=== PATIENT | male | born 1950 | race Caucasian/White ===

== ENCOUNTER → 2019-11-10 07:36 | Outpatient (BNVA) | payer MEDICARE, SELFPAY | PROVIDERS: Family Provider Internal Medicine; Visit Provider Nurse Practitioner Family | DX: R09.89 Other specified symptoms and signs involving the circulatory and respiratory systems (principal); R06.02 Shortness of breath; R05 Cough | CPT/HCPCS: 71046; 85025 ==

== ENCOUNTER → 2019-11-26 08:46 | Outpatient (BNVA) | payer MEDICARE, SELFPAY | PROVIDERS: Family Provider Internal Medicine; Visit Provider Nurse Practitioner Family | DX: J40 Bronchitis, not specified as acute or chronic (principal); J45.41 Moderate persistent asthma with (acute) exacerbation; M19.90 Unspecified osteoarthritis, unspecified site; I10 Essential (primary) hypertension | CPT/HCPCS: 80053; 85025 ==

== ENCOUNTER → 2020-01-12 09:17 | Outpatient (BNVA) | payer MEDICARE, SELFPAY | PROVIDERS: Family Provider Internal Medicine; Visit Provider Nurse Practitioner Family | DX: J45.909 Unspecified asthma, uncomplicated (principal); R05 Cough; J40 Bronchitis, not specified as acute or chronic; Z13.6 Encounter for screening for cardiovascular disorders; R60.9 Edema, unspecified | CPT/HCPCS: 71046; 80053; 83880; 85025 ==

== ENCOUNTER → 2020-03-22 08:18 | Outpatient (BNVA) | payer MEDICARE, SELFPAY | PROVIDERS: Family Provider Internal Medicine; Visit Provider Family Medicine | DX: R06.2 Wheezing (principal); J43.9 Emphysema, unspecified | CPT/HCPCS: 71046 ==

== ENCOUNTER → 2020-05-12 10:00 | Outpatient (BNVA) | payer MEDICARE, SELFPAY | PROVIDERS: Family Provider Internal Medicine; Visit Provider Nurse Practitioner Family | DX: I10 Essential (primary) hypertension (principal); E11.9 Type 2 diabetes mellitus without complications | CPT/HCPCS: 80053; 80061; 83036; 85025 ==

== ENCOUNTER 2020-10-14 17:41 | Emergency (ER) | payer MEDICARE, SELFPAY ==
[2020-10-14] VITALS (7 sets, daily range): BP systolic 132–153; BP diastolic 72–83; PULSE 76–83; RESP 18–19; O2SAT 94–96; BMI 30.4
--- NOTE | 2020-10-14 17:55 | ECG_ITS ---
[facility] Test Date: 2020-10-14 Pat Name: Aubrey El Department: Room: Gender: Male Licensed Embalmer: : 1950 Requested By: Ken Mcarthur Order Number: [id number] Gay MD: Itzel Bates M.D. Measurements Intervals [place] Rate: 74 P: 59 PA: 185 QRS: -52 QRSD: 100 T: 47 QT: 352 QTc: 392 Interpretive Statements SINUS RHYTHM LEFT AXIS DEVIATION [QRS AXIS < -30] No previous ECG available for comparison Electronically Signed On 10-15-2020 22:15:50 NETWORK ARCHITECT by Itzel Bates M.D. [email or web address]
--- NOTE | 2020-10-14 17:55 | XR_ITS ---
WS: [id number] Exam: XR chest 1V portable [id number] Date/Time of Exam: 10/14/2020 5:55 PM Reason For Exam: cp Comparison 03/22/2020. Findings: The lungs are clear and fully expanded. Costophrenic angles are sharp. No infiltrates. Bronchovascula r relief appears normal. Cardiac silhouette is unremarkable. Bony elements are intact. XR/XR chest 1V portable [id number] IMPRESSION: Unremarkable chest radiograph.
[2020-10-14 18:01] LABS: Basophils # 0.1 10^3/uL (0.0-0.1); Basophils % 0.8 %; Eosinophils # 1.3 10^3/uL (0.0-0.8); Eosinophils % 11.2 %; Hematocrit 43.4 % (42.0-52.0); Hemoglobin 14.2 g/dL (11.7-16.6); Lymphocytes # 1.9 10^3/uL (0.8-4.8); Lymphocytes % 16.7 %; Mean Corpuscular HGB Conc 32.7 g/dL (30.0-36.0); Mean Corpuscular Hemoglobin 27.4 pg (28.0-34.0); Mean Corpuscular Volume 83.6 fL (80-94); Mean Platelet Volume 9.2 fL (7.4-10.4); Monocytes # 0.9 10^3/uL (0.2-0.9); Monocytes % 7.8 %; Neutrophils # 7.22 10^3/uL (1.8-7.7); Neutrophils % 63.2 %; Nucleated Red Blood Cells % 0 %; Platelet Count 319 10^3/cmm (130-400); Red Blood Count 5.19 10^6/uL (4.1-5.3); Red Cell Distribution Width 13.8 % (12.1-15.1); White Blood Count 11.4 10^3/uL (4.0-10.0)
--- NOTE | 2020-10-14 18:11 | ED_ITS ---
HPI - Chest Pain General: Chief Complaint: Chest Pain Stated Complaint: CHEST PAIN Time Seen by Provider: 10/14/20 17:55 Source: patient Mode of arrival: ambulatory Limitations: no limitations History of Present Illness: HPI narrative: 69-year-old male states has been having left-sided chest pain over the last 3 days. He states been a sharp pain and seems to be worse with palpation and movement of his left arm. States pain is currently 2 out of 10. He denies any radiation of his pain. He denies any nausea. He denies any shortness of breath. Denies any fever. He denies any cough. MD complaint: chest pain Associated symptoms: Deny abdominal pain, dyspnea, fever(s), nausea or vomiting Review of Systems Const: Denies: fever(s), chills, body aches or change in appetite Eyes: Denies: blurry vision or eye discomfort ENMT: Denies: throat pain or dental pain Card: Reports: chest pain Resp: Denies: dyspnea GI: Denies: abdominal pain, nausea, vomiting or diarrhea : Denies: dysuria Musc: Denies: neck pain or back pain Skin/Breast: Denies: rash Neuro: Denies: headache(s) Psych: Denies: depression Sohail/Lymph: Denies: easy bruising All/Imm: Denies: urticaria PFSH ED PFSH: Medical History (Updated 10/14/20 @ 20:27 by Ken Mcarthur MD) Asthma exacerbation Bronchitis Diabetes Hyperlipidemia Recurrent sinusitis Social History Smoking and tobacco status: never smoked Second hand smoke exposure: No Alcohol intake: never Caregiver/support person: Yes Lives independently: Yes Household members: none Marital status: / Current occupational status: retired History of recent travel: No Current gender identity: Male Physical Exam Const: COMMON NORMALS: no acute distress, patient oriented x3 and healthy appearing HENMT: COMMON NORMALS: normocephalic and atraumatic HEAD & SCALP: normocephalic and atraumatic Eye: COMMON NORMALS: Equal, round and reactive pupils present and EOMs intact bilaterally PUPIL: Yes Equal, round and reactive pupils present Neck/C-Spine: COMMON NORMALS: full ROM and supple Chest: COMMONS NORMALS: normal palpation of entire chest wall OTHER: point tender to left chest reproduces pain Resp: COMMON NORMALS: normal respiratory effort, No retractions, No use of accessory muscles and clear to auscultation bilaterally AUSCULTATION: clear to auscultation bilaterally Cardio: COMMON NORMALS: regular rate, regular rhythm and No murmurs present (Cardio) RATE: regular rate RHYTHM: regular rhythm GI: COMMON NORMALS: Normal to inspection, nondistended, normoactive bowel sounds present, Soft to palpation, non-tender and no masses PALPATION: Yes Soft to palpation Extremity: COMMON NORMALS: normal to inspection and full ROM Neuro: COMMON NORMALS: patient oriented x3, moves all extremities and no focal motor deficits Psych: COMMON NORMALS: mental status grossly normal, Normal thought process present and cooperative THOUGHT PROCESS: Normal thought process present Skin: COMMON NORMALS: no rashes or lesions noted and no wounds GENERAL SKIN EXAM: no rashes or lesions noted Course Vital Signs: Vital signs: Vital Signs Pulse Rate 76 10/14/20 17:49 Respiratory Rate 18 10/14/20 17:49 Blood Pressure 149/78 10/14/20 17:49 Pulse Oximetry 94 10/14/20 17:49 MDM - Chest Pain MDM Narrative: Medical decision making narrative: Patient presents with chest pain is atypical in nature. He is point tender on exam but is pain is likely muscular in nature. His initial repeat troponins here are negative. His x-ray here is negative as well. He has no signs of aortic dissection or pulmonary Adrian. He has no signs of acute coronary syndrome. Patient is stable for discharge and he is to follow-up with his PCP next week and he is to follow-up then and return to ER if worsening. He understands agrees to plan. Lab Data: Labs: Lab Results 10/14/20 10/14/20 10/14/20 Range/Units 17:34 17:45 17:45 WBC 11.4 H (4.0-10.0) 10^3/ uL RBC 5.19 (4.1-5.3) 10^6/u L Hgb 14.2 (11.7-16.6) g/dL Hct 43.4 (42.0-52.0) % MCV 83.6 (80-94) fL MCH 27.4 L (28.0-34.0) pg MCHC 32.7 (30.0-36.0) g/dL RDW 13.8 (12.1-15.1) % Plt Count 319 (130-400) 10^3/c mm MPV 9.2 (7.4-10.4) fL Neut % (Auto) 63.2 % Lymph % (Auto) 16.7 % Andrews % (Auto) 7.8 % Eos % (Auto) 11.2 % Baso % (Auto) 0.8 % Neut # (Auto) 7.22 (1.8-7.7) 10^3/u L Lymph # (Auto) 1.9 (0.8-4.8) 10^3/u L Andrews # (Auto) 0.9 (0.2-0.9) 10^3/u L Eos # (Auto) 1.3 H (0.0-0.8) 10^3/u L Baso # (Auto) 0.1 (0.0-0.1) 10^3/u L Nucleated RBC % (a uto) 0 % Nucleated RBCs # 0.0 /100WBC Sodium 140 (136-145) mmol/L Potassium 4.1 (3.5-5.1) mmol/L Chloride 102 (98-107) mmol/L Carbon Dioxide 26 (22-29) mmol/L Anion Gap 16.1 (5-19) BUN 12 (8-23) mg/dL Creatinine 1.2 (0.7-1.2) mg/dL GFR Calculation 60.2 L (90-130) mL/min Glucose 123 H (65-115) mg/dL Calculated Osmolal ity 291 (285-295) mOsm/k g Calcium 9.2 (8.5-10.5) mg/dL Total Bilirubin 0.4 (0.15-1.2) mg/dL AST 36 (0-40) U/L ALT 44 H (0-41) U/L Alkaline Phosphata se 78 (40-130) IU/L Troponin T Baselin e (0-15) ng/L Troponin T 120 Min nikolai 13.15 (0-15) ng/L Total Protein 7.2 (6.6-8.7) g/dL Albumin 4.3 (3.5-5.2) g/dL Globulin 2.9 (1.3-4.6) g/dL 10/14/20 Range/Units 17:45 WBC (4.0-10.0) 10^3/ uL RBC (4.1-5.3) 10^6/u L Hgb (11.7-16.6) g/dL Hct (42.0-52.0) % MCV (80-94) fL MCH (28.0-34.0) pg MCHC (30.0-36.0) g/dL RDW (12.1-15.1) % Plt Count (130-400) 10^3/c mm MPV (7.4-10.4) fL Neut % (Auto) % Lymph % (Auto) % Andrews % (Auto) % Eos % (Auto) % Baso % (Auto) % Neut # (Auto) (1.8-7.7) 10^3/u L Lymph # (Auto) (0.8-4.8) 10^3/u L Andrews # (Auto) (0.2-0.9) 10^3/u L Eos # (Auto) (0.0-0.8) 10^3/u L Baso # (Auto) (0.0-0.1) 10^3/u L Nucleated RBC % (a uto) % Nucleated RBCs # /100WBC Sodium (136-145) mmol/L Potassium (3.5-5.1) mmol/L Chloride (98-107) mmol/L Carbon Dioxide (22-29) mmol/L Anion Gap (5-19) BUN (8-23) mg/dL Creatinine (0.7-1.2) mg/dL GFR Calculation (90-130) mL/min Glucose (65-115) mg/dL Calculated Osmolal ity (285-295) mOsm/k g Calcium (8.5-10.5) mg/dL Total Bilirubin (0.15-1.2) mg/dL AST (0-40) U/L ALT (0-41) U/L Alkaline Phosphata se (40-130) IU/L Troponin T Baselin e 16 H (0-15) ng/L Troponin T 120 Min nikolai (0-15) ng/L Total Protein (6.6-8.7) g/dL Albumin (3.5-5.2) g/dL Globulin (1.3-4.6) g/dL Imaging Data^: CXR: Attestation: I personally reviewed and interpreted this imaging study as follows: My impression: no acute abnormality EKG Data^: EKG 1: Attestation: I personally reviewed and interpreted this EKG as follows: EKG interpretation date: 10/14/20 EKG interpretation time: 17:51 Interpretation: nsr hr [address] or t wave abnormalities qrs 100 qtc 379 Discharge Plan Discharge Patient Disposition: Home Clinical Impression: Chest pain Qualifiers: Chest pain type: unspecified Qualified Code(s): R07.9 - Chest pain, unspecified Condition: Stable Prescriptions: New Naprosyn 500 mg tablet 500 mg PO BID PRN (Reason: pain) Qty: 20 RF: 0 No Action (DME) nebulizers Misc See Rx Instructions .ROUTE .MEDSUPPLY Qty: 1 RF: 0 (DME) nebulizer accessories Misc See Rx Instructions .ROUTE .MEDSUPPLY Qty: 1 RF: 0 budesonide 0.5 mg/2 mL suspension for nebulization See Rx Instructions .ROUTE .COMPLEX RF: 0 Advair Diskus 250-50 mcg/dose blister with device 1 inh INHALATION BID@0800,2100 RF: 0 Zyrtec 10 mg tablet 10 mg PO DAILY@0800 RF: 0 atorvastatin 10 mg tablet 10 mg PO BEDTIME@2100 RF: 0 benazepril-hydrochlorothiazide 20-25 mg tablet 1 tab PO DAILY@0800 RF: 0 montelukast 10 mg tablet 10 mg PO DAILY@0800 RF: 0 Flonase Allergy Relief 50 mcg/actuation spray,suspension 2 spray INTRANASAL DAILY@2100 RF: 0 metformin 500 mg tablet,ER osvaldo.retention 24 hr 500 mg PO DAILY@0800 RF: 0 Discharge Orders: Discharge ED (Routine); Ordered 10/14/20 Ordered By: Ken Mcarthur Referrals: Juan Lopez DO [Primary Care Provider] - 1-3 days Discharge Diet: Advance as tolerated Discharge Activity: Resume usual activity Patient Instructions: Chest Pain (ED) Coding Level of Care Code ED Web Development Instructor for Chg Fwd Exam Comprehensive
[2020-10-14 18:33] LABS: Alanine Aminotransferase 44 U/L (0-41); Albumin Level 4.3 g/dL (3.5-5.2); Alkaline Phosphatase 78 IU/L (40-130); Anion Gap 16.1 (5-19); Aspartate Amino Transferase 36 U/L (0-40); Blood Urea Nitrogen 12 mg/dL (8-23); Calcium 9.2 mg/dL (8.5-10.5); Carbon Dioxide 26 mmol/L (22-29); Chloride 102 mmol/L (98-107); Globulin 2.9 g/dL (1.3-4.6); Glomerular Filtration Rate 60.2 mL/min (90-130); Glucose 123 mg/dL (65-115); Osmolality Calculated 291 mOsm/kg (285-295); Potassium 4.1 mmol/L (3.5-5.1); Sodium 140 mmol/L (136-145); Total Bilirubin 0.4 mg/dL (0.15-1.2); Total Protein 7.2 g/dL (6.6-8.7)
[2020-10-14 18:58] LABS: Troponin(5th) Baseline 16 ng/L (0-15)
[2020-10-14 20:17] LABS: Troponin 5 2HR 13.15 ng/L (0-15)
[2020-10-14 20:29] LABS: Troponin 5 2HR Delta -3.15 ABS# (0-10)
[2020-10-14] MEDS: morphine 4 mg/mL SDV 1 mL IVP (20:39)
== END 2020-10-14 20:58 | disposition home or self-care (01) ==
PROVIDERS: Emergency Provider Emergency Medicine; PCP Internal Medicine
DX: R07.9 Chest pain, unspecified (principal); E11.9 Type 2 diabetes mellitus without complications; E78.5 Hyperlipidemia, unspecified
CPT/HCPCS: 12345; 36415; 71045; 80053; 84484; 85025; 93005; 96374; 99282; 99283; J2270

== ENCOUNTER → 2020-10-18 09:19 | Outpatient (BNVA) | payer MEDICARE, SELFPAY | PROVIDERS: PCP Internal Medicine; Visit Provider Family Medicine | DX: E78.2 Mixed hyperlipidemia (principal); E11.9 Type 2 diabetes mellitus without complications; I10 Essential (primary) hypertension; R07.9 Chest pain, unspecified | CPT/HCPCS: 80053; 80061; 83036; 84443; 85025 ==

== ENCOUNTER → 2021-01-17 12:04 | Outpatient (BNVA) | payer MEDICARE, SELFPAY | PROVIDERS: PCP Internal Medicine; Visit Provider Family Medicine | DX: E11.9 Type 2 diabetes mellitus without complications (principal); E78.2 Mixed hyperlipidemia; I10 Essential (primary) hypertension | CPT/HCPCS: 80053; 80061; 83036; 85025 ==

== ENCOUNTER → 2021-04-25 08:24 | Outpatient (BNVA) | payer MEDICARE, SELFPAY | PROVIDERS: PCP Internal Medicine; Visit Provider Family Medicine | DX: E78.2 Mixed hyperlipidemia (principal); E11.9 Type 2 diabetes mellitus without complications; I10 Essential (primary) hypertension; L98.9 Disorder of the skin and subcutaneous tissue, unspecified; M19.90 Unspecified osteoarthritis, unspecified site | CPT/HCPCS: 80053; 80061; 83036; 84443; 85025 ==

== ENCOUNTER → 2021-06-20 09:00 | Outpatient (BNVA) | payer MEDICARE, SELFPAY | PROVIDERS: Absent Provider Family Medicine; PCP Internal Medicine; Visit Provider Family Medicine | DX: I10 Essential (primary) hypertension (principal); E11.9 Type 2 diabetes mellitus without complications | CPT/HCPCS: 80053; 83036; 85025 ==

== ENCOUNTER → 2021-08-24 09:22 | Outpatient (BNVA) | payer MEDICARE, SELFPAY | PROVIDERS: PCP Internal Medicine; Visit Provider Nurse Practitioner Family | DX: R30.0 Dysuria (principal) | CPT/HCPCS: 81000 ==

== ENCOUNTER → 2021-09-19 10:15 | Outpatient (BNVA) | payer MEDICARE, SELFPAY | PROVIDERS: PCP Internal Medicine; Visit Provider Family Medicine | DX: E78.2 Mixed hyperlipidemia (principal); E11.9 Type 2 diabetes mellitus without complications; I10 Essential (primary) hypertension; Z12.5 Encounter for screening for malignant neoplasm of prostate | CPT/HCPCS: 80053; 80061; 83036; 85025; G0103 ==

== ENCOUNTER → 2021-10-25 14:41 | Outpatient (BNVA) | payer MEDICARE, SELFPAY | PROVIDERS: PCP Internal Medicine; Referring Provider Family Medicine; Visit Provider Urology | DX: R97.20 Elevated prostate specific antigen [PSA] (principal) | CPT/HCPCS: 81003; 84153 ==

== ENCOUNTER → 2021-12-20 08:33 | Outpatient (BNVA) | payer MEDICARE, SELFPAY | PROVIDERS: PCP Family Medicine; Visit Provider Family Medicine | DX: E78.5 Hyperlipidemia, unspecified (principal); E11.9 Type 2 diabetes mellitus without complications; I10 Essential (primary) hypertension | CPT/HCPCS: 80053; 80061; 83036; 85025 ==

== ENCOUNTER → 2022-06-23 11:36 | Outpatient (BNVA) | payer MEDICARE, SELFPAY | PROVIDERS: PCP Family Medicine; Visit Provider Family Medicine | DX: E11.9 Type 2 diabetes mellitus without complications (principal); I10 Essential (primary) hypertension; M19.90 Unspecified osteoarthritis, unspecified site; E78.5 Hyperlipidemia, unspecified; Z23 Encounter for immunization; E78.2 Mixed hyperlipidemia | CPT/HCPCS: 80053; 80061; 82043; 83036; 84443; 85025 ==

== ENCOUNTER → 2022-11-08 08:27 | Outpatient (BNVA) | payer MEDICARE, SELFPAY | PROVIDERS: PCP Family Medicine; Visit Provider Family Medicine | DX: I10 Essential (primary) hypertension (principal); E11.9 Type 2 diabetes mellitus without complications; E78.5 Hyperlipidemia, unspecified | CPT/HCPCS: 80053; 80061; 83036; 84443; 85025 ==

== ENCOUNTER → 2022-11-15 11:17 | Outpatient (BNVA) | payer MEDICARE, SELFPAY | PROVIDERS: PCP Family Medicine; Visit Provider Family Medicine | DX: Z00.00 Encounter for general adult medical examination without abnormal findings (principal); Z12.5 Encounter for screening for malignant neoplasm of prostate | CPT/HCPCS: G0103 ==

== ENCOUNTER → 2023-05-28 11:20 | Outpatient (BNVA) | payer MEDICARE, SELFPAY | PROVIDERS: PCP Family Medicine; Visit Provider Family Medicine | DX: E11.9 Type 2 diabetes mellitus without complications (principal); E78.5 Hyperlipidemia, unspecified; I10 Essential (primary) hypertension; R97.20 Elevated prostate specific antigen [PSA] | CPT/HCPCS: 80053; 80061; 83036; 84153; 84443; 85025 ==

== ENCOUNTER → 2023-11-26 09:24 | Outpatient (BNVA) | payer MEDICARE, SELFPAY | PROVIDERS: PCP Family Medicine; Visit Provider Family Medicine | DX: R05.9 Cough, unspecified (principal); J18.9 Pneumonia, unspecified organism | CPT/HCPCS: 71046 ==

== ENCOUNTER → 2024-01-15 10:09 | Outpatient (BNVA) | payer MEDICARE, SELFPAY | PROVIDERS: PCP Family Medicine; Visit Provider Family Medicine | DX: E11.9 Type 2 diabetes mellitus without complications (principal); I10 Essential (primary) hypertension; R30.0 Dysuria; Z79.899 Other long term (current) drug therapy | CPT/HCPCS: 80053; 80061; 81000; 82043; 83036; 85025 ==

== ENCOUNTER → 2024-05-27 10:21 | Outpatient (BNVA) | payer MEDICARE, SELFPAY | PROVIDERS: PCP Family Medicine; Visit Provider Nurse Practitioner Family | DX: E11.9 Type 2 diabetes mellitus without complications (principal); R97.20 Elevated prostate specific antigen [PSA] | CPT/HCPCS: 80053; 80061; 82607; 83036; 84153; 84443; 85025 ==

== ENCOUNTER 2024-06-27 14:50 | Outpatient (CLI) | payer MEDICARE, SELFPAY ==
--- NOTE | 2024-06-27 15:00 | USCV_ITS ---
Aubrey El Age: 73 Gender: M : 1950 Exam Date: 06/27/2024 15:24 Ordering Phys: Sherine Kowalski FINANCE CONSULTANT FINANCE CONSULTANT Technologist: CT Exam Location: [facility] [place] Indication: BP: 114 / 84 HR: 77 Rhythm: Sinus Technical Quality: Adequate MEASUREMENTS (Male / Female) Normal Values 2D ECHO LVOT Diameter 2.2 cm LV Ejection Fraction MOD 4C 64.3 % LV Ejection Fraction MOD 2C 55.9 % LV Ejection Fraction 2C AL 57.2 % LA Diameter 4.0 cm RA Systolic Volume 4C AL 30.0 ml RA Systolic Volume 4C MOD 30.1 ml LA Sys Volume AL 59.3 cm cubed LA Sys Volume Index AL 26.5 cm cubed/m squared Aorta at Sinotubular Diameter 2.8 cm IVC Diameter 2.2 cm M-MODE LA Ao Ratio MM 1.4 AV Cusp Separation MM 1.6 cm DOPPLER AV Peak Velocity 262.0 cm/s LVOT Peak Velocity 77.0 cm/s AV Area Cont Eq vti 1.5 cm squared AV Area Cont Eq pk 1.1 cm squared MV Peak Velocity 130.0 cm/s MV Area PHT 3.1 cm squared Mitral E to A Ratio 0.7 TR Peak Velocity 156.0 cm/s TR Peak Gradient 9.7 mmHg TV Peak E Velocity 75.0 cm/s Right Atrial Pressure 3.0 mmHg Pulmonary Artery Systolic Pressu 12.7 mmHg PV Peak Velocity 138.0 cm/s FINDINGS Left Ventricle Normal left ventricular size, systolic function and wall thickness, with no regional wall motion abnormalities. Left ventricular ejection fraction is estimated at 60 %. Grade I/IV diastolic dysfunction (abnormal relaxation filling pattern), normal to mildly elevated filling pressures. Right Ventricle The right ventricle is normal in size and function. Right Atrium The right atrium is normal in size. Left Atrium The left atrium is normal in size. Mitral Valve Structurally normal mitral valve without significant stenosis or prolapse. There is no mitral regurgitation. Aortic Valve Moderate aortic valve calcification. Mild aortic valve stenosis, mean gradient 15.9 mmHg, KELLEY 1.5 cm squared.mild aortic valve regurgitation. Trace aortic valve regurgitation. Tricuspid Valve Structurally normal tricuspid valve without significant stenosis or regurgitation. Pulmonary artery systolic pressure is normal. Pulmonic Valve Structurally normal pulmonic valve without significant stenosis. There is no pulmonic regurgitation. Pericardium Normal pericardium without effusion. Aorta Normal ascending aorta dimension. IVC The inferior vena cava appears normal. CONCLUSIONS Normal left ventricular size, systolic function and wall thickness, with no regional wall motion abnormalities. Left ventricular ejection fraction is estimated at 60 %. Grade I/IV diastolic dysfunction (abnormal relaxation filling pattern), normal to mildly elevated filling pressures. Moderate aortic valve calcification. Mild aortic valve stenosis, mean gradient 15.9 mmHg, KELLEY 1.5 cm squared.mild aortic valve regurgitation. Trace aortic valve regurgitation. There is no pericardial effusion. Pulmonary artery systolic pressure is within normal limits. Right atrial pressure is around 5 mm of mercury. Nadeen Galvan MD (Electronically Signed) Final Date: 30 June 2024 14:08 S
== END 2024-06-27 14:51 | disposition home or self-care (01) ==
LOC: RAD 14:50
PROVIDERS: PCP Family Medicine; Visit Provider Nurse Practitioner Family
DX: I50.30 Unspecified diastolic (congestive) heart failure (principal); I70.0 Atherosclerosis of aorta
CPT/HCPCS: 93306

== ENCOUNTER → 2025-01-12 08:31 | Outpatient (BNVA) | payer MEDICARE, SELFPAY | PROVIDERS: PCP Family Medicine; Visit Provider Nurse Practitioner Family | DX: Z79.899 Other long term (current) drug therapy (principal); E78.2 Mixed hyperlipidemia; E11.9 Type 2 diabetes mellitus without complications; I10 Essential (primary) hypertension; R97.20 Elevated prostate specific antigen [PSA] | CPT/HCPCS: 80053; 80061; 82306; 82607; 83036; 83735; 84153; 84443; 85025 ==

== ENCOUNTER → 2025-05-20 10:05 | Outpatient (BNVA) | payer MEDICARE, SELFPAY | PROVIDERS: PCP Nurse Practitioner Family; Visit Provider Nurse Practitioner Family | DX: R97.20 Elevated prostate specific antigen [PSA] (principal) | CPT/HCPCS: 84153 ==